=== PATIENT | male | born 1950 | race Caucasian/White ===

== ENCOUNTER 2021-11-05 07:18 | Emergency (ER) | payer OTHER ==
[2021-11-05] MEDS ORDERED: Ondansetron PF 4 MG/2 ML Vial ONE ×2 (07:33→08:34)
[2021-11-05 08:00] LABS: #Basophils 0.1 thou/uL (0.0-0.2); #Lymphocytes 1.8 thou/uL (1.20-3.40); #Monocytes 0.4 thou/uL (0.11-0.59); #Neutrophils 12.2 thou/uL (1.40-6.50); %Basophils 0.4 % (0.0-1.0); %Eosinophils 0.1 % (0.0-10.0); %Lymphocytes 12.3 % (21.0-51.0); %Monocytes 2.5 % (0.0-10.0); %Neutrophils 84.7 % (42.0-75.0); Hemoglobin 15.7 g/dL (14.0-18.0); Mean Corpuscular HGB CONC 31.7 g/dL (32.0-36.0); Mean Corpuscular Hemoglobin 28.9 pg (27.0-31.0); Mean Corpuscular Volume 91.1 fL (78.0-98.0); Platelet Count 269 thou/uL (130-400); Red Blood Cell (RBC) Count 5.42 mill/uL (4.70-6.10); White Blood Cell (WBC) Count 14.4 thou/uL (4.8-10.8)
[2021-11-05 08:14] LABS: ALT (SGPT) 54 U/L (8-55); AST (SGOT) 33 U/L (5-34); Alkaline Phosphatase 140 U/L (40-110); Anion Gap 20 mmol/L (10-20); BUN (Urea Nitrogen) 9 mg/dL (8.4-25.7); Bilirubin, Total 0.9 mg/dL (0.2-1.2); Calc. Creatinine Clearance 0 mL/min (70-130); Calcium 10.1 mg/dL (7.8-10.44); Carbon Dioxide 21 mmol/L (23-31); Chloride 102 mmol/L (98-107); Estimated GFR 96; Globulin 3.1 g/dL (2.4-3.5); Glucose 139 mg/dL (83-110); Lipase 15 U/L (8-78); Potassium 4.1 mmol/L (3.5-5.1); Protein, Total 8.1 g/dL (5.8-8.1); Sodium 139 mmol/L (136-145)
[2021-11-05 08:43] LABS: CKMB 2.5 ng/mL (0-6.6); Magnesium 1.7 mg/dL (1.6-2.6)
[2021-11-05 08:51] LABS: Bilirubin Negative (Negative); Blood, Urine Negative (Negative); Clarity Clear (Clear); Glucose, Urine (Dipstick) Negative (Negative); Ketone, Urine > or equal to 80 mg/dL (Negative); Leukocyte Negative (Negative); Nitrite Negative (Negative); Protein, Urine (Dipstick) Trace mg/dL (Neg-Trace); Urobilinogen 0.2 mg/dL (Less than 2); pH, Urine 8.5 (5.0-9.0)
[2021-11-05] MEDS ORDERED: Iopamidol 370 76% 100 ML VIAL ONE (09:00)
[2021-11-05] MEDS ORDERED: Aspirin Chewable 81 MG TAB ONE (09:54)
== END 2021-11-05 10:39 | disposition short-term general hospital (02) ==
LOC: NAV ERS 07:18
DX: K52.9 Noninfective gastroenteritis and colitis, unspecified (principal); R77.8 Other specified abnormalities of plasma proteins; E78.5 Hyperlipidemia, unspecified; I10 Essential (primary) hypertension; I25.2 Old myocardial infarction
CPT/HCPCS: 36415; 74177; 80053; 81003; 82553; 83605; 83690; 83735; 84484; 85025; 93005; 96361; 96374; 96376; J2405; Q9967

== ENCOUNTER 2023-08-29 10:54 | Emergency (ER) | payer MEDICARE ==
[~2023-08-29 10:54] MED LIST: Iopamidol 370 76% 100 ML VIAL ONE
[2023-08-29] MEDS ORDERED: Sodium Chloride 0.9% 1,000 ML ONE (11:22)
[2023-08-29] MEDS ORDERED: Ondansetron PF 4 MG/2 ML Vial ONE (11:22)
[2023-08-29 11:27] LABS: #Basophils 0.1 thou/uL (0.0-0.2); #Lymphocytes 1.4 thou/uL (1.20-3.40); #Monocytes 0.9 thou/uL (0.11-0.59); #Neutrophils 16.2 thou/uL (1.40-6.50); %Basophils 0.4 % (0.0-1.0); %Lymphocytes 7.4 % (21.0-51.0); %Monocytes 4.8 % (0.0-10.0); %Neutrophils 87.3 % (42.0-75.0); Hematocrit 50.4 % (42.0-52.0); Hemoglobin 16.2 g/dL (14.0-18.0); Mean Corpuscular HGB CONC 32.1 g/dL (32.0-36.0); Mean Corpuscular Hemoglobin 28.2 pg (27.0-31.0); Mean Corpuscular Volume 87.9 fl (78.0-98.0); Mean Platelet Volume 7.9 fL (7.4-10.4); Platelet Count 307 10x3/uL (130-400); RBC Distribution Width 11.8 % (11.5-14.5); Red Blood Cell (RBC) Count 5.73 mill/uL (4.70-6.10); White Blood Cell (WBC) Count 18.6 10x3/uL (4.8-10.8)
[2023-08-29 11:39] LABS: ALT (SGPT) 32 U/L (8-55); AST (SGOT) 26 U/L (5-34); Albumin 4.5 g/dL (3.4-4.8); Alkaline Phosphatase 122 U/L (40-110); Anion Gap 17 mmol/L (10-20); BUN (Urea Nitrogen) 13 mg/dL (8.4-25.7); Bilirubin, Total 0.9 mg/dL (0.2-1.2); Calc. Creatinine Clearance 0 mL/min (70-130); Calcium 9.5 mg/dL (7.8-10.44); Carbon Dioxide 20 mmol/L (23-31); Chloride 101 mmol/L (98-107); Estimated GFR 91; Globulin 2.9 g/dL (2.4-3.5); Glucose 140 mg/dL (83-110); Lipase 12 U/L (8-78); Protein, Total 7.4 g/dL (5.8-8.1); Sodium 134 mmol/L (136-145)
[2023-08-29] MEDS ORDERED: Pantoprazole 40 MG VIAL ONE (12:05)
[2023-08-29 12:10] LABS: Bilirubin Negative (Negative); Blood, Urine Trace (Negative); Clarity Clear (Clear); Glucose, Urine (Dipstick) Negative (Negative); Ketone, Urine 80 mg/dL (Negative); Leukocyte Negative (Negative); Nitrite Negative (Negative); Protein, Urine (Dipstick) Negative (Neg-Trace); Specific Gravity, Urine 1.015 (1.005-1.030); Urobilinogen 0.2 mg/dL (Less than 2)
[2023-08-29 12:14] LABS: Urine Culture Reflex No No
[2023-08-29 12:28] LABS: CAUTI Indications for Culture Pelvic or flank pain; RBC/HPF 0-3 HPF (0-3); WBC/HPF None Seen HPF (0-3)
[2023-08-29] MEDS ORDERED: Sodium Chloride 0.9% 100 ML ONE (12:46)
[2023-08-29] MEDS ORDERED: Metoclopramide HCl 10 MG (2 mL) VIAL ONE (12:46)
[2023-08-29] MEDS ORDERED: cloNIDine 0.1 MG TAB ONE (13:15)
== END 2023-08-29 14:00 | disposition home or self-care (01) ==
LOC: NAV ERS 10:54
DX: R11.2 Nausea with vomiting, unspecified (principal); I10 Essential (primary) hypertension
CPT/HCPCS: 74177; 80053; 81001; 83690; 85025; 93005; 96365; 96375; 99284; C9113; J2405; J2765; J7050; Q9967; 82274

== ENCOUNTER 2025-01-14 15:18 | Emergency (ER) | payer MEDICARE, SELFPAY ==
[2025-01-14] MEDS ORDERED: Ondansetron PF 4 MG/2 ML Vial ONE ×2 (15:39→20:03)
[2025-01-14 16:19] LABS: #Basophils 0.2 thou/uL (0.0-0.2); #Eosinophils 0.0 thou/uL (0.0-0.7); #Lymphocytes 1.5 thou/uL (1.20-3.40); #Monocytes 0.3 thou/uL (0.11-0.59); #Neutrophils 10.2 thou/uL (1.40-6.50); %Basophils 1.9 % (0.0-1.0); %Eosinophils 0.2 % (0.0-10.0); %Lymphocytes 12.0 % (21.0-51.0); %Monocytes 2.6 % (0.0-10.0); %Neutrophils 83.3 % (42.0-75.0); Hematocrit 46.9 % (42.0-52.0); Hemoglobin 16.6 g/dL (14.0-18.0); Mean Corpuscular Hemoglobin 29.0 pg (27.0-31.0); Mean Corpuscular Volume 81.9 fl (78.0-98.0); Platelet Count 310 10x3/uL (130-400); Red Blood Cell (RBC) Count 5.73 mill/uL (4.70-6.10); White Blood Cell (WBC) Count 12.2 10x3/uL (4.8-10.8)
[2025-01-14 16:34] LABS: ALT (SGPT) 23 U/L (Less than 45); AST (SGOT) 31 U/L (11-34); Albumin 4.9 g/dL (3.1-4.5); Alkaline Phosphatase 169 U/L (40-110); Anion Gap 18 mmol/L (10-20); BUN (Urea Nitrogen) 12 mg/dL (8.4-25.7); Bilirubin, Total 0.8 mg/dL (0.3-1.2); Calc. Creatinine Clearance 0 mL/min (70-130); Calcium 9.7 mg/dL (7.8-10.44); Carbon Dioxide 21 mmol/L (23-31); Chloride 103 mmol/L (98-107); Globulin 3.2 g/dL (2.4-3.5); Glucose 130 mg/dL (83-110); Lipase 14 U/L (8-78); Potassium 4.0 mmol/L (3.5-5.1); Sodium 138 mmol/L (136-145)
[2025-01-14 16:38] LABS: Glucose, Urine (Dipstick) Negative (Negative); Leukocyte Negative (Negative); Protein, Urine (Dipstick) Negative (Neg-Trace); Specific Gravity, Urine 1.015 (1.005-1.030)
[2025-01-14 17:00] LABS: Bacteria/HPF 1+ HPF (None Seen); CAUTI Indications for Culture Pelvic or flank pain; RBC/HPF 0-3 HPF (0-3); WBC/HPF 0-3 HPF (0-3)
[2025-01-14 17:01] LABS: Urine Culture Reflex No No
[2025-01-14] MEDS ORDERED: Metoclopramide HCl 10 MG (2 mL) VIAL ONE (17:07)
[2025-01-14] MEDS ORDERED: diphenhydrAMINE 50 MG/ML VIAL ONE (17:07)
== END 2025-01-14 20:20 | disposition home or self-care (01) ==
LOC: NAV ERS 15:18
DX: R19.7 Diarrhea, unspecified (principal); R11.2 Nausea with vomiting, unspecified; E86.0 Dehydration; E78.5 Hyperlipidemia, unspecified; I10 Essential (primary) hypertension; I25.2 Old myocardial infarction; Z95.5 Presence of coronary angioplasty implant and graft; Z79.02 Long term (current) use of antithrombotics/antiplatelets; Z79.899 Other long term (current) drug therapy
CPT/HCPCS: 80053; 81001; 83690; 85025; 96361; 96365; 96375; 96376; J1200; J2405; J2765; J7030